=== PATIENT | female | born 1935 | race African-American/Black ===

== ENCOUNTER 2016-09-22 22:18 | Emergency (ER) | payer MEDICARE ==
[~2016-09-22] VITALS: Ht 165.1 cm; Wt 41.0 kg
[~2016-09-22 22:18] MED LIST: LOT10
[2016-09-23] MEDS ORDERED: NA PHOS,M-B/NA PHOS,DI-BA ENEMA 118ML PR ONE (00:15)
[2016-09-23 02:25] VITALS: BP 126/55
== END 2016-09-23 02:30 | disposition home or self-care (01) ==
LOC: ER 22:18
DX: K59.00 Constipation, unspecified (principal); I11.9 Hypertensive heart disease without heart failure; F02.80 Dementia in other diseases classified elsewhere, unspecified severity, without behavioral disturbance, psychotic disturbance, mood disturbance, and anxiety; G30.9 Alzheimer's disease, unspecified
CPT/HCPCS: 99284

== ENCOUNTER 2016-11-04 12:24 | Emergency (ER) | payer MEDICARE ==
[~2016-11-04] VITALS: Ht 165.1 cm; Wt 45.0 kg
[2016-11-04 14:11] LABS: HEMATOCRIT. 28.1 % (36.0-48.0); HEMOGLOBIN. 9.5 g/dL (12.0-16.0); MEAN CORPUSCULAR HEMOGLOBIN 30.7 pg (28.0-32.0); MEAN PLATELET VOLUME 6.5 fl (7.4-10.4); PLATELET 491 x1000/uL (130-400); RED BLOOD CELL COUNT 3.08 mill/uL (4.2-5.4)
[2016-11-04 14:24] LABS: CARBON DIOXIDE 30 mEq/L (21-32); CHLORIDE 101 mEq/L (98-107); ETHANOL BLOOD < 10 mg/dL
[2016-11-04 14:28] LABS: TROPONIN I < 0.02 ng/mL (0.00-0.04)
[2016-11-04 14:43] LABS: PLATELET ESTIMATE INCREASED
[2016-11-04] MEDS ORDERED: LORAZEPAM 2MG/ML CPJ IV ONE (16:15)
[2016-11-04 16:37] LABS: CLARITY URINE CLOUDY (CLEAR); COLOR URINE YELLOW (YELLOW); GLUCOSE URINE NEGATIVE (NEGATIVE); KETONES URINE 1+ (NEGATIVE); LEUKOCYTE ESTERASE URINE NEGATIVE (NEGATIVE); NITRITE URINE NEGATIVE (NEGATIVE); OCCULT BLOOD URINE TRACE (NEGATIVE); PROTEIN URINE 1+ (NEGATIVE); SPECIFIC GRAVITY URINE 1.019 (1.005-1.030)
[2016-11-04 16:54] LABS: *AMPHETAMINES SCREEN URINE NEGATIVE (NEGATIVE); *BARBITURATES SCREEN URINE NEGATIVE (NEGATIVE); *BENZODIAZEPINES SCREEN URINE NEGATIVE (NEGATIVE); *COCAINE SCREEN URINE NEGATIVE (NEGATIVE); CANNABINOID URINE SCREEN NEGATIVE (NEGATIVE); METHADONE URINE SCREEN NEGATIVE (NEGATIVE); OPIATES URINE SCREEN NEGATIVE (NEGATIVE); PHENCYCLIDINE URINE SCREEN NEGATIVE (NEGATIVE)
[2016-11-04 18:17] VITALS: BP 125/72
== END 2016-11-04 18:30 | disposition home or self-care (01) ==
LOC: ER 12:31
DX: D64.9 Anemia, unspecified (principal); R31.29 Other microscopic hematuria; R63.0 Anorexia; M79.605 Pain in left leg; M79.604 Pain in right leg; F03.90 Unspecified dementia, unspecified severity, without behavioral disturbance, psychotic disturbance, mood disturbance, and anxiety; I11.9 Hypertensive heart disease without heart failure
CPT/HCPCS: 36415; 70450; 71010; 80053; 80305; 81001; 84484; 85025; 99285; G0482